=== PATIENT | male | born 1955 | race Caucasian/White ===

== ENCOUNTER → 2018-08-31 | Outpatient (CLI) | payer BC ==
[~2018-08-31] MED LIST: COUM1TAB17 OR; COUMADIN; PAIN325T OR; PERC5TAB8 OR; PERC7.5T8 OR; SIMVASTIN PO; VALS80CA OR; [UNRECOGNIZED DRUG - OTHER] PO
--- NOTE | 2018-08-31 09:32 | REP ---
Clinical: Lower back pain. Technique: AP, lateral, coned-down views of the lumbosacral spine. Comparison: 06 03 15. Findings: Advanced degenerative disc osteophyte complexes at the L3-4, L4-5 and L5-L1 levels again noted and relatively stable. Chronic spondylolysis with grade 1 spondylolisthesis at the L5-S1 level is again noted. No acute fracture / compression injury identified. Impression: Relatively stable advanced degenerative changes involving the lower lumbar spine. If the patient remains symptomatic MRI should be considered for further investigation. Electronically Signed by Bebeto Farah MD 08/31/2018 09:24 A
== END ==
LOC: M WUC 08:53
PROVIDERS: ATTEND Physician Assistant
DX: M43.17 Spondylolisthesis, lumbosacral region (principal); M25.78 Osteophyte, vertebrae

== ENCOUNTER → 2019-11-08 | Outpatient (CLI) | payer BC ==
[~2019-11-08] MED LIST changes: +ASPI81TA85 PO; +CALCTAB7 PO; +HYDR25TAB PO; +LOSA50TA88 PO; +PRESCAP PO; +XANA0.5T PO; +ZOCO80TA PO
== END ==
LOC: M LABSMTC 09:37
PROVIDERS: ATTEND Anesthesiology
DX: Z01.818 Encounter for other preprocedural examination (principal); Z11.59 Encounter for screening for other viral diseases
CPT/HCPCS: C9803; U0003

== ENCOUNTER 2019-11-11 13:27 | Day surgery (SDC) | payer BC ==
[~2019-11-11] VITALS: Ht 175.3 cm; Wt 101.6 kg
[~2019-11-11 13:27] MED LIST changes: +NS 1,000 ML IV ONE
[2019-11-11] MEDS ORDERED: propofoL 200 MG/20 ML VIAL As Ordered ONE (13:57)
[2019-11-11] MEDS ORDERED: LIDOCAINE 2% 100MG/5ML SDV (FOR ANES.) As Ordered ONE (13:57)
--- NOTE | 2019-11-11 15:29 | ROOR ---
Patient Name: Ken Alonzo Procedure Date: 11/11/2019 3:06 PM Date of : 1955 Age: 64 Room: [facility] Gender: Male Note Status: Finalized Procedure: Total Colonoscopy to Cecum Indications: Screening for colorectal malignant neoplasm Providers: Willy Sanchez MD Referring MD: Owen Mandel MD Requesting Provider: Medicines: Monitored Anesthesia Care Complications: No immediate complications. Procedure: Pre-Anesthesia Assessment: - The heart rate, respiratory rate, oxygen saturations, blood pressure, adequacy of pulmonary ventilation, and response to care were monitored throughout the procedure. The Colonoscope was introduced through the anus and advanced to the cecum, identified by appendiceal orifice and ileocecal valve. The colonoscopy was performed without difficulty. The patient tolerated the procedure well. The quality of the bowel preparation was excellent. Findings: The perianal and digital rectal examinations were normal. Non-bleeding internal hemorrhoids were found during retroflexion. The hemorrhoids were small and Grade I (internal hemorrhoids that do not prolapse). Multiple small and large-mouthed diverticula were found in the recto-sigmoid colon, sigmoid colon and descending colon. The exam was otherwise without abnormality on direct and retroflexion views. Impression: - Non-bleeding internal hemorrhoids. - Diverticulosis in the recto-sigmoid colon, in the sigmoid colon and in the descending colon. - The examination was otherwise normal on direct and retroflexion views. - No specimens collected. - The exam was otherwise normal to the cecum. Recommendation: - Patient has a contact number available for emergencies. The signs and symptoms of potential delayed complications were discussed with the patient. Return to normal activities tomorrow. Written discharge instructions were provided to the patient. - High fiber diet. - Discharge patient to home. - Continue present medications. - Repeat colonoscopy in 10 years for screening purposes. - Return to referring physician. - The findings and recommendations were discussed with the patient's family. Willy Sanchez MD Willy Sanchez MD 11/11/2019 3:29:01 PM Electronically signed by Willy Sanchez MD Number of Addenda: 0 Note Initiated On: 11/11/2019 3:06 PM Estimated Blood Loss: Estimated blood loss: none.
[2019-11-11 15:50] VITALS: BP 163/92
== END 2019-11-11 16:19 | disposition home or self-care (01) ==
LOC: M OPP 13:27
PROVIDERS: ATTEND Internal Medicine Gastroenterology
DX: Z12.11 Encounter for screening for malignant neoplasm of colon (principal); K64.0 First degree hemorrhoids; K57.30 Diverticulosis of large intestine without perforation or abscess without bleeding; Z79.82 Long term (current) use of aspirin; Z79.899 Other long term (current) drug therapy

== ENCOUNTER → 2020-07-28 | Outpatient (REF) | payer BC ==
[~2020-07-28] MED LIST changes: -ASPI81TA85 PO; +ASPI81TA86 PO; +CALC-211 PO; -CALCTAB7 PO; +HYDR-3490 PO; -HYDR25TAB PO; -NS 1,000 ML IV ONE
[2020-07-28 13:56] LABS: AMORPHOUS SEDIMENT LARGE (NEGATIVE); APPEARANCE, URINE TURBID (CLEAR); BACTERIA, URINE AUTO NEGATIVE (NEGATIVE); BILIRUBIN, URINE AUTO NEGATIVE (NEGATIVE); BLOOD, URINE BLOOD NEGATIVE (NEGATIVE); COLOR, URINE YELLOW (YELLOW); GLUCOSE, URINE (UA) AUTO 1+ mg/dL (NEGATIVE); KETONE, URINE AUTO TRACE mg/dL (NEGATIVE); LEUKOCYTE ESTERASE, URINE AUTO NEGATIVE (NEGATIVE); NITRITE, URINE AUTO NEGATIVE (NEGATIVE); PROTEIN, URINE AUTO NEGATIVE (NEGATIVE); RBC, URINE AUTO 0 /HPF (0-3); SPECIFIC GRAVITY URINE AUTO 1.027 (1.002-1.035); SQUAMOUS EPITHELIAL CELL UR AU 0 /HPF (0-6); UROBILINOGEN, URINE AUTO 0.2 mg/dL (0.0-2.0); WBC, URINE AUTO 0 /HPF (0-3)
== END ==
LOC: M SMT 12:34
PROVIDERS: ATTEND Nurse Practitioner Women's Health
DX: R31.0 Gross hematuria (principal)

== ENCOUNTER → 2020-08-06 | Outpatient (CLI) | payer BC ==
[~2020-08-06] MED LIST changes: +ISOVUE-370 76% 100ML VIAL As Ordered ONE
--- NOTE | 2020-08-06 08:51 | REP ---
INDICATION: GROSS HEMATURIA. COMPARISON: 04/24/2012 TECHNIQUE: Axial precontrast, contrast-enhanced and delayed images from the lung bases to the pubic symphysis using 100 cc Isovue 370 intravenous contrast material. Coronal and sagittal reformations obtained along with recreated 3D volume rendered CT urogram. This CT examination was performed using the following dose reduction techniques: Automated exposure control, adjustment of mA and/or kv according to the patient's size, and the use of iterative reconstruction technique. FINDINGS: Kidneys demonstrate chronic appearing symmetric perinephric stranding and are otherwise normal in all phases of evaluation. No hydroureteronephrosis, nephroureterolithiasis, renal cystic or mass lesion appreciated. Delayed images demonstrate normal appearance to the collecting system. Mild chronic bladder wall thickening is unchanged compared to 04/24/2012. The patient is noted to be status post prostatectomy. Diffuse hepatosteatosis noted without focal hepatic lesion. Spleen, pancreas, and bilateral adrenal glands are normal. Cholelithiasis noted without acute cholecystitis. The enteric system including stomach, small, and large bowel appears normal. No evidence for obstruction or acute inflammatory process. Normal terminal ileum and appendix are identified in the right lower quadrant. Few scattered sigmoid diverticula noted without acute diverticulitis. Pelvis demonstrates mild stable chronic bladder wall thickening and evidence for prior prostatectomy. No pelvic fluid or adenopathy. No ascites. No free air. No intraperitoneal or retroperitoneal adenopathy. Abdominal aorta and vasculature appear normal. Musculoskeletal structures demonstrate degenerative changes including chronic L5 spondylolysis. Lung bases are clear. IMPRESSION: 1. Essentially normal appearance to the urinary tract system as described above. 2. Evidence for prior prostatectomy. 3. Few scattered sigmoid diverticula without acute diverticulitis. <Electronically signed by Bebeto Farah > 08/06/20 [id number]
== END ==
LOC: M RAD 07:43
PROVIDERS: ATTEND Nurse Practitioner Women's Health
DX: R31.0 Gross hematuria (principal)
CPT/HCPCS: 74178; Q9967

== ENCOUNTER → 2020-12-28 | Outpatient (CLI) | payer BC, MEDICARE ==
--- NOTE | 2020-12-28 09:37 | REP ---
INDICATION: PROSTATE CA. COMPARISON: Chest x-ray 04/24/2012 TECHNIQUE: Bolus 100 mL Isovue 370 scanning through the chest with coronal and sagittal reconstructions. FINDINGS: Of the lung stovall are well inflated. There is some minimal dependent atelectatic changes deep sulci lower lobes. A 2 mm nodule mid axillary line lateral basal segment left lower lobe on image 76. No other perifissural nodule. On image 68, near the anterior axillary line right base, is a 2 x 3 mm perifissural nodule along the major fissure on image 49 and a calcified granuloma subpleural right upper lobe on image 21. The left lung shows a 3 mm pleural based nodule on image 63 mid axillary line in the lateral basal segment left lower lobe. No acute infiltrates, pleural based masses or calcified pleural plaques. The heart is not enlarged. There is no pericardial thickening or effusion. The aorta is without aneurysm or dissection. The main, right and left pulmonary arteries are without filling defects. No pathologic sized mediastinal or hilar adenopathy is visible. No axillary or supraclavicular mass is identified. There is no hiatal hernia. Bone windows show the sternum, manubrium, medial clavicles, visualized portions of scapulae and humeral heads as well as the visualized ribs without for a fracture, sclerotic or lytic destructive lesions. Spine shows cervicothoracic spondylosis but no lesions of the spine or its posterior elements. Upper abdominal structures will be commented on in the CT abdomen pelvis report this same date. IMPRESSION: 1. There are a few 2-3 mm noncalcified nodules in the periphery of the right lung and 1 calcified granuloma without infiltrate, effusion or mass. No mediastinal hilar adenopathy. Using the Fleischner society recommendations for follow-up of pulmonary nodules, if the patient is at low risk for lung malignancy no follow-up is needed. Clinical factors may decide that earlier or regular follow-up is necessary such as a smoking history for which a 1 year follow-up would be recommended. 2. The heart, mediastinal contents, aorta and proximal pulmonary arteries were unremarkable. 3. Some degenerative changes in the spine and shoulders but no lytic, blastic or destructive metastatic lesions identified. <Electronically signed by Lacho Conde > 12/28/20 [id number]
--- NOTE | 2020-12-28 09:52 | REP ---
INDICATION: PROSTATE CA. COMPARISON: 08/06/2020 TECHNIQUE: Bolus 100 mL Isovue 370 scanning through the abdomen and pelvis with coronal and sagittal reconstructions. FINDINGS: There is no hiatal hernia. Stomach empty. Diffuse fatty infiltration of the liver is again seen. No gross hepatomegaly, hepatic mass nor intrahepatic biliary dilatation. No splenomegaly or focal splenic lesion. A tiny splenule anterior and inferior to the spleen as before. The gallbladder shows a few layered dependent calculi unchanged. Common duct in the lesly hepatis without dilatation or stone. The pancreas shows no calcification to suggest calcified stone in the distal common duct within the pancreatic head. Remainder of the pancreas unremarkable. Adrenal glands normal. Small bowel loops and colon in the abdomen proper were unremarkable. Appendix seen and normal. There are a few scattered diverticula in the mid left colon without diverticulitis. Bilateral kidneys show symmetric enhancement without mass, stone, hydronephrosis or hydroureter. Ureters show normal course to the bladder and are without dilatation or stone evident. The aorta has some calcifications without aneurysm. There is no periaortic, other retroperitoneal, mesenteric or intra-abdominal lymphadenopathy. No ascites or free air in the abdomen or pelvis. Bone windows show L5 spondylolysis with grade 1 spondylolisthesis of L5 on S1 and some disc space narrowing. There is also disc space narrowing at L4-5 and a few mm of retrolisthesis related to facet arthropathy. The other disc space heights and all vertebral body heights are intact. There are marginal osteophytes greater in the lower thoracic and lumbar spine. No lytic, blastic or destructive lesions in the spine. Visualized lower ribs were unremarkable. CT pelvis: Sacrum, SI joints, pelvis and hips show minor degenerative changes without fracture or destructive lesion. Distal ureters without dilatation or stone. Bladder only minimally filled without stone mass or wall thickening. The distal left colon and proximal sigmoid show a few scattered diverticula without diverticulitis or colitis. Small bowel loops distal course was unremarkable and without abnormality. Appendix seen and no ascites, perforation or free air. There is no ventral or inguinal hernia in the pelvis. No inguinal or pelvic adenopathy. IMPRESSION: 1. No CT evidence of lytic or destructive lesions to suggest bony metastatic disease from prostate cancer. Stable bilateral L5 spondylolysis with grade 1 spondylolisthesis and some chronic mild degenerative disc and facet arthritic changes, stable. 2. Kidneys, collecting system and ureters unremarkable. No renal/ureteral/bladder stone. 3. Diffuse fatty infiltration of the liver, a few small layering calcified stones in the gallbladder. No other significant finding in the abdomen or pelvis. <Electronically signed by Lacho Conde > 12/28/20 [id number]
== END ==
LOC: M RAD 08:24
PROVIDERS: ATTEND Internal Medicine
DX: C61 Malignant neoplasm of prostate (principal); R91.8 Other nonspecific abnormal finding of lung field
CPT/HCPCS: 71260; 74177; Q9967

== ENCOUNTER → 2021-01-25 | Outpatient (CLI) | payer MEDICARE ==
[~2021-01-25] MED LIST changes: -ISOVUE-370 76% 100ML VIAL As Ordered ONE
--- NOTE | 2021-01-25 14:11 | REP ---
INDICATION: PROSTATE CA. COMPARISON: 04/24/2012 the latest prior TECHNIQUE/RADIOTRACER AND DOSE: After the intravenous administration of 21.7 mCi of technetium 99 M MDP a total body bone scan was obtained. FINDINGS: Once again, there is a photopenic defect seen in the right knee from previous knee prosthetic device placement. There is a focus of increased activity seen in the posterior aspect of the os calcis of the right foot. This represents a change compared to the prior exam. There is increased activity seen in the shoulders right greater than left in a degenerative type nonfocal pattern. This has increased significantly compared to the prior exam. There is a degenerative type uptake pattern seen in the left foot essentially unchanged from the prior exam. Increased uptake is seen in the wrists partially imaged but likely secondary to degenerative change and essentially stable from the prior exam. IMPRESSION: 1. Uptake seen in the right os calcis, as described above, and consistent with the patient's known heel spur. Further evaluation with MRI is suggested. 2. Degenerative type uptake pattern seen in the right shoulder, however, plain film correlation is recommended. MRI should be considered. 3. There is no compelling evidence for metastatic disease. Other findings as described above. <Electronically signed by Americo Blair > 01/25/21 [id number]
== END ==
LOC: M RAD 10:33
PROVIDERS: ATTEND Internal Medicine
DX: C61 Malignant neoplasm of prostate (principal)
CPT/HCPCS: 78306; A9503

== ENCOUNTER → 2022-09-03 | Outpatient (CLI) | payer MEDICARE ==
[~2022-09-03] MED LIST changes: +LOSA50TA28 PO; -LOSA50TA88 PO
[2022-09-03 09:57] LABS: BASO # 0.1 10^3/uL (0.0-0.2); EOS # 0.2 10^3/uL (0.0-0.5); EOS % 3.3 % (0.0-3.0); HEMATOCRIT 40.3 % (42.0-52.0); LYMPH # 1.7 10^3/uL (1.5-5.0); LYMPH % 35.4 % (24.0-44.0); MEAN CORPUSCULAR HGB CONC 34.7 g/dl (32.0-36.5); MEAN CORPUSCULAR VOLUME 89.4 fl (80.0-96.0); MONO # 0.6 10^3/uL (0.0-0.8); MONO % 12.8 % (2.0-8.0); NEUTROPHILS # 2.3 10^3/uL (1.5-8.5); NEUTROPHILS % 47.1 % (36.0-66.0); PLATELET COUNT, AUTOMATED 215 10^3/uL (150-450); RED BLOOD COUNT 4.51 10^6/uL (4.30-6.10); WHITE BLOOD COUNT 4.8 10^3/uL (4.0-10.0)
[2022-09-03 10:17] LABS: PROSTATIC SPECIFIC AG MONITOR 0.56 NG/ML (< 4.00)
[2022-09-03 10:20] LABS: ALBUMIN 3.7 G/DL (3.2-5.2); ALKALINE PHOSPHATASE 75 U/L (46-116); ALT/SGPT 73 U/L (7.0-40); AST/SGOT 54 U/L (<34); BILIRUBIN,TOTAL 0.7 MG/DL (0.3-1.2); BLOOD UREA NITROGEN 22 MG/DL (9-23); CARBON DIOXIDE LEVEL 27 MMOL/L (20-31); CHLORIDE LEVEL 105 MMOL/L (98-107); CREATININE FOR GFR 0.75 MG/DL (0.70-1.30); GLOMERULAR FILTRATION RATE > 60.0 (>49); GLUCOSE, FASTING 122 MG/DL (74-106); POTASSIUM SERUM 4.5 MMOL/L (3.5-5.1); SODIUM LEVEL 140 MMOL/L (136-145); TOTAL PROTEIN 6.8 G/DL (5.7-8.2)
[2022-09-03 10:22] LABS: TESTOSTERONE 18 NG/DL (241-827)
== END ==
LOC: M RAD 08:19
PROVIDERS: ATTEND Internal Medicine
DX: C61 Malignant neoplasm of prostate (principal)

== ENCOUNTER → 2022-09-04 | Outpatient (CLI) | payer MEDICARE ==
[~2022-09-04] MED LIST changes: +GASTROGRAFIN SOLUTION 30ML As Ordered ONE; +ISOVUE-370 76% 100ML VIAL As Ordered ONE
== END ==
LOC: M RAD 08:08
PROVIDERS: ATTEND Internal Medicine
DX: C61 Malignant neoplasm of prostate (principal); R91.1 Solitary pulmonary nodule; K80.00 Calculus of gallbladder with acute cholecystitis without obstruction
CPT/HCPCS: 71260; 74177; Q9963; Q9967

== ENCOUNTER → 2022-09-15 | Outpatient (CLI) | payer MEDICARE ==
[~2022-09-15] MED LIST changes: -GASTROGRAFIN SOLUTION 30ML As Ordered ONE; -ISOVUE-370 76% 100ML VIAL As Ordered ONE
== END ==
LOC: M RAD 10:07
PROVIDERS: ATTEND Internal Medicine
DX: C61 Malignant neoplasm of prostate (principal)
CPT/HCPCS: 78306; A9503

== ENCOUNTER → 2022-11-01 | Outpatient (CLI) | payer MEDICARE ==
[~2022-11-01] MED LIST changes: +PROHANCE 279.3MG/ML 15ML VIAL ONE; +PROHANCE 279.3MG/ML 5ML VIAL ONE
== END ==
LOC: M PLAIMG 08:32
PROVIDERS: ATTEND Orthopaedic Surgery
DX: M70.61 Trochanteric bursitis, right hip (principal); M70.62 Trochanteric bursitis, left hip
CPT/HCPCS: 73723; A9576

== ENCOUNTER → 2023-02-01 | Outpatient (REF) | payer MEDICARE, BC ==
[~2023-02-01] MED LIST changes: -PROHANCE 279.3MG/ML 15ML VIAL ONE; -PROHANCE 279.3MG/ML 5ML VIAL ONE
== END ==
LOC: M SFHCDERM 14:01
PROVIDERS: ATTEND Nurse Practitioner Family
DX: L82.0 Inflamed seborrheic keratosis (principal)

== ENCOUNTER → 2023-10-01 | Outpatient (CLI) | payer MEDICARE | LOC: M RAD 07:04 | PROVIDERS: ATTEND Nurse Practitioner Family | DX: C61 Malignant neoplasm of prostate (principal) | CPT/HCPCS: 78306; A9503 ==

== ENCOUNTER → 2023-10-02 | Outpatient (CLI) | payer MEDICARE ==
[~2023-10-02] MED LIST changes: +ISOVUE-370 76% 100ML VIAL As Ordered ONE
== END ==
LOC: M RAD 10:27
PROVIDERS: ATTEND Nurse Practitioner Family
DX: C61 Malignant neoplasm of prostate (principal)
CPT/HCPCS: 71260; 74177; Q9967

== ENCOUNTER → 2023-12-25 | Outpatient (CLI) | payer MEDICARE ==
[~2023-12-25] MED LIST changes: -ISOVUE-370 76% 100ML VIAL As Ordered ONE
== END ==
LOC: M WHC 12:35
PROVIDERS: ATTEND Internal Medicine
DX: C61 Malignant neoplasm of prostate (principal); Z79.818 Long term (current) use of other agents affecting estrogen receptors and estrogen levels

== ENCOUNTER → 2024-08-12 | Outpatient (REF) | payer MEDICARE | LOC: M SFHCDERM 18:03 | PROVIDERS: ATTEND Nurse Practitioner Family | DX: L82.1 Other seborrheic keratosis (principal) ==

== ENCOUNTER → 2024-09-19 | Outpatient (CLI) | payer MEDICARE | LOC: M PLAIMG 10:46 | PROVIDERS: ATTEND Nurse Practitioner Family | DX: C61 Malignant neoplasm of prostate (principal); K76.0 Fatty (change of) liver, not elsewhere classified; K80.20 Calculus of gallbladder without cholecystitis without obstruction ==